=== PATIENT | female | born 1990 | race African-American/Black ===

== ENCOUNTER 2021-07-19 03:12 | Emergency (ER) | payer OTHER, SELFPAY ==
--- NOTE | ~2021-07-19 | US_ITS ---
EXAMINATION: US OB <=14 wk fetus w TV DATE: 07/19/2021 05:42 INDICATION: Bleeding and cramping during first trimester TECHNIQUE: Real-time pelvic ultrasound utilizing both a transvaginal and transabdominal probe was pe rformed. The interpreting radiologist was not present for the study. COMPARISON: None FINDINGS: The uterus measures 8.9 x 4.6 x 5.3 cm. There is an intrauterine gestational sac. A 3 mm yolk sac is present but no discernible pole. The mean sac diameter measures 11 mm, which correlates with a n estimated gestational age of 5 weeks and 1 days. The right ovary measures 3.3 x 2.2 x 2.2 cm. The left ovary measures 2.0 x 2.2 x 2.1 cm. There are a few small anechoic follicles in both ovaries. Vascular flow identified at both ovaries with venous an d arterial waveforms. There is no free fluid in the pelvis. IMPRESSION: 1. Single intrauterine early gestational sac with yolk sac but no pole yet apparent. 2. Gestational age by ultrasound of 5 weeks 1 day(s) +/- 3 day(s) with ultrasound estimated date of delivery (JACQUES) of 03/20/2022. Reviewed, dictated and finalized at location A. PARTS DELIVERY DRIVER IMPRESSION: 1. Single intrauterine early gestational sac with yolk sac but no pole ye t apparent. 2. Gestational age by ultrasound of 5 weeks 1 day(s) +/- 3 day(s) with ultraso und estimated date of delivery (JACQUES) of 03/20/2022.
[2021-07-19 03:25] VITALS: BP 104/91; PULSE 94; RESP 18; O2SAT 100
[2021-07-19 03:45] LABS: Basophils Percent Auto 0.3 % (0.2-1.2); Eosinophils Absolute Auto 0.2 K/mm3 (0-0.3); Eosinophils Percent Auto 2.1 % (0-4.4); Hematocrit 38.4 % (37.0-47.0); Hemoglobin 12.1 g/dL (12.0-15.0); Immature Granulocyte Absolute 0.01 K/mm3 (0.00-0.031); Immature Granulocyte Percent A 0.1 % (0-0.5); Lymphocytes Absolute Auto 2.32 K/mm3 (0.9-3.2); Mean Corpuscular HGB Conc 31.5 g/dl (32-36); Mean Corpuscular Hemoglobin 26.2 pg (26-34); Mean Corpuscular Volume 83.1 fl (80-100); Mean Platelet Volume 9.7 fl (7.4-10.4); Monocytes Absolute Auto 0.6 K/mm3 (0.1-0.6); Monocytes Percent Auto 8.3 % (2.6-8.5); Neutrophils Absolute Auto 3.9 K/mm3 (1.3-6.7); Neutrophils Percent Auto 56.2 % (45.5-73.1); Platelet Count Result 320 k/mm3 (150-375); Red Blood Count 4.62 M/mm3 (4.2-5.4); Red Cell Distribution Width 17.2 % (11.5-14.5)
[2021-07-19] MEDS: SODIUM CHLORIDE 0.9% IV 1,000 ML 999 ML IV CONT (03:47)
--- NOTE | 2021-07-19 03:56 | ED.GENADULT ---
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 Patient reports that she is approximately 6 states her last menstrual period was end of May. Patient reports that this is her second the first 1 ended in a miscarriage. Patient reports he did not have to have a D&C with the previous one and did not require RhoGAM at that time. Patient reports has had no evaluation during this and does not have a documented intrauterine . The patient also reports that she is unsure of her blood type. Patient reports that she is having cramping in her abdomen reports its more on the right side of her abdomen. The patient reports that is not improved by anything nor is it worsened by the patient reports the amount of bleeding that she had denied was similar to whenever she starts her menses. Related Data Allergies Allergy/AdvReac Type Severity Reaction Status Date / Time No Known Allergies Allergy Unverified 12/16/15 13:29 Review of Systems Review of Systems: A 10 system review of systems was completed on the patient and is negative except for what is stated in the HPI. Nursing and ancillary documentation was reviewed. Exam Narrative: GENERAL: Well-appearing, well-nourished, and in no acute distress. HEAD: Normocephalic, atraumatic. EYES: PERRLA and EOMI. ENT: Nares clear, no rhinorrhea or epistaxis. Mucous membranes moist. NECK: Supple. CHEST: Clear to auscultation. No respiratory distress. HEART: Regular rate and rhythm. No murmur heard. Normal peripheral pulses. ABDOMEN: Soft, mild tenderness to palpation in the right side of the abdomen, no guarding no rebound, nondistended, normal active bowel sounds. EXTREMITIES: Normal range of motion. No edema. SKIN: Warm, dry, no rash. NEURO: No focal deficits. Alert and oriented x3. PSYCH: Normal mood and affect. Course Vital Signs Vital signs: Vital Signs Pulse Rate 94 07/19/21 03:25 Respiratory Rate 18 07/19/21 03:25 Blood Pressure 104/91 H 07/19/21 03:25 Pulse Oximetry 100 07/19/21 03:25 Pulse Rate 84 07/19/21 06:26 Respiratory Rate 18 01/12/22 06:26 Blood Pressure 140/79 07/19/21 06:26 Pulse Oximetry 100 07/19/21 06:26 Medical Decision Making Vital Signs Vital Signs: Vital Signs Pulse Rate 94 07/19/21 03:25 Respiratory Rate 18 07/19/21 03:25 Blood Pressure 104/91 H 07/19/21 03:25 Pulse Oximetry 100 07/19/21 03:25 Pulse Rate 84 07/19/21 06:26 Respiratory Rate 18 07/19/21 06:26 Blood Pressure 140/79 07/19/21 06:26 Pulse Oximetry 100 07/19/21 06:26 Lab Data Result diagrams: 07/19/21 03:36 07/19/21 03:36 Labs: Lab Results 07/19/21 07/19/21 07/19/21 Range/Units 03:36 03:36 03:36 WBC 7.0 (4.5-10.0) K/mm3 RBC 4.62 (4.2-5.4) M/mm3 Hgb 12.1 (12.0-15.0) g/dL Hct 38.4 (37.0-47.0) % MCV 83.1 (80-100) fl MCH 26.2 (26-34) pg MCHC 31.5 L (32-36) g/dl RDW 17.2 H (11.5-14.5) % Plt Count 320 (150-375) k/mm3 MPV 9.7 (7.4-10.4) fl Immature Gran % (Auto) 0.1 (0-0.5) % Neut % (Auto) 56.2 (45.5-73.1) % Lymph % (Auto) 33.0 (18.3-44.2) % [place] % (Auto) 8.3 (2.6-8.5) % Eos % (Auto) 2.1 (0-4.4) % Baso % (Auto) 0.3 (0.2-1.2) % Lymph # (Auto) 2.32 (0.9-3.2) K/mm3 [place] # (Auto) 0.6 (0.1-0.6) K/mm3 Eos # (Auto) 0.2 (0-0.3) K/mm3 Baso # (Auto) 0.0 (0.0-0.1) K/mm3 Abs Immat Gran (auto) 0.01 (0.00-0.031) K/mm3 Absolute Neuts (auto) 3.9 (1.3-6.7) K/mm3 Absolute Nucleated RBC 0.0 (0.0-0.012) K/mm3 Nucleated RBC % 0.0 (0.0-0.2) % Sodium 137 (137-145) mmol/L Potassium 3.4 (3.4-5.0) mmol/L Chloride 105 (98-1
[2021-07-19 04:05] LABS: Alanine Aminotransferase 15 U/L (4-35); Alkaline Phosphatase 62 U/L (38-126); Anion Gap 10 mmol/L (8-16); Aspartate Amino Transferase 21 U/L (14-36); Bilirubin,Total 0.3 mg/dL (0.2-1.3); Blood Urea Nitrogen 11 mg/dL (7-17); Carbon Dioxide 22 mmol/L (22-30); Chloride 105 mmol/L (98-107); Estimated CRCL calculation 121 ml/min; Estimated Glomerular Filt Rate > 60; Glucose 114 mg/dL (65-110); Potassium 3.4 mmol/L (3.4-5.0); Sodium 137 mmol/L (137-145)
[2021-07-19 04:16] LABS: Add Urine Microscopic? YES; Appearance Urine Clear (Clear); Bacteria Urine Trace /hpf; Bilirubin Urine Negative (Negative); Blood Urine 2+ (Negative); Color Urine Yellow (Yellow); Glucose Urine UA Negative (Negative); Ketones Urine Negative (Negative); Leukocyte Esterase Ur 1+ LEU/UL (Negative); Mucus Urine Few /lpf; Nitrate Urine Negative (Negative); Protein Urine 1+ mg/dL (Negative); Specific Grav Ur 1.028 (1.001-1.035); Squamous Epithelial Cell Urine Many /hpf (Few)
[2021-07-19 04:23] VITALS: BP 133/83; PULSE 86; RESP 18; O2SAT 100
--- NOTE | 2021-07-19 04:44 | PC.NURSE ---
Discussed POC w/ pt - aware having U/S ordered. No requests at this time. Pt is alert and upright on stretcher w/ VSS.
--- NOTE | 2021-07-19 05:34 | PC.NURSE ---
Pt to U/S via w/c at this time.
[2021-07-19 06:26] VITALS: BP 140/79; PULSE 84; RESP 18; O2SAT 100
[2021-07-19 07:25] VITALS: BP 124/76; PULSE 89; RESP 18; O2SAT 99
== END 2021-07-19 07:30 | disposition home or self-care (01) ==
PROVIDERS: Emergency Provider Emergency Medicine
DX: O20.0 Threatened abortion (principal)
CPT/HCPCS: 36415; 76801; 76817; 80053; 81001; 81025; 84702; 85025; 85461; 87086; 87088; 96360; 99284; J7030

== ENCOUNTER 2021-07-21 08:54 | Outpatient (CLI) | payer OTHER, SELFPAY | END 2021-07-21 08:55 | disposition home or self-care (01) | PROVIDERS: Visit Provider Obstetrics & Gynecology | DX: O20.0 Threatened abortion (principal); Z3A.00 Weeks of gestation of pregnancy not specified | CPT/HCPCS: 36415; 84702 ==

== ENCOUNTER 2021-08-02 13:49 | Outpatient (CLI) | payer OTHER, SELFPAY ==
--- NOTE | ~2021-08-02 | US_ITS ---
US OB <=14 wk fetus w TV DATE: 08/02/2021 15:10 INDICATION: First trimester vaginal spotting. Gestational viability and dating. TECHNIQUE: Real-time imaging via transabdominal and transvaginal approaches COMPARISON: 07/19/2021 obstetrical ultrasound FINDINGS: The uterus measures 9.8 cm height, 5.4 cm AP and 6.6 cm transverse dimension. A normally shaped intrauterine gestational sac with normal surrounding hyperechogenicity consistent w ith normal decidual reaction is noted. Yolk sac and pole are detected. heart rate of 169 bpm. [place]-rump length measures 1.36 cm, consistent with estimated gestational age of 7 weeks 4 days +/- 5 days, with JACQUES at 03/17/2022. There is a right ovarian cysts measuring up to approximately 1 x 1.6 cm. The ovaries are normal in si ze, with normal vascular flow. No free pelvic fluid collection. IMPRESSION: Estimated gestational age of 7 weeks 4 days +/- 5 days; JACQUES: 03/17/2022 Reviewed, dictated and finalized at Location A. Reviewed, dictated and finalized at location A. NG MACHINE OPERATOR PRODUCTION IMPRESSION: Estimated gestational age of 7 weeks 4 days +/- 5 days; JACQUES: 022
[2021-08-05 06:40] LABS: Progesterone 16.9 ng/mL (***)
== END 2021-08-02 13:50 | disposition home or self-care (01) ==
PROVIDERS: Visit Provider Obstetrics & Gynecology
DX: Z34.91 Encounter for supervision of normal pregnancy, unspecified, first trimester (principal); Z3A.01 Less than 8 weeks gestation of pregnancy
CPT/HCPCS: 36415; 76801; 76817; 84144

== ENCOUNTER 2021-09-16 12:32 | Outpatient (CLI) | payer OTHER, SELFPAY ==
[2021-09-16 13:14] LABS: Basophils Percent Auto 0.3 % (0.2-1.2); Eosinophils Absolute Auto 0.1 K/mm3 (0-0.3); Eosinophils Percent Auto 1.5 % (0-4.4); Hematocrit 36.1 % (37.0-47.0); Hemoglobin 11.7 g/dL (12.0-15.0); Immature Granulocyte Absolute 0.02 K/mm3 (0.00-0.031); Immature Granulocyte Percent A 0.3 % (0-0.5); Mean Corpuscular HGB Conc 32.4 g/dl (32-36); Mean Corpuscular Hemoglobin 26.7 pg (26-34); Mean Corpuscular Volume 82.4 fl (80-100); Mean Platelet Volume 10.2 fl (7.4-10.4); Monocytes Absolute Auto 0.6 K/mm3 (0.1-0.6); Neutrophils Absolute Auto 4.1 K/mm3 (1.3-6.7); Neutrophils Percent Auto 60.9 % (45.5-73.1); Platelet Count Result 279 k/mm3 (150-375); Red Blood Count 4.38 M/mm3 (4.2-5.4); Red Cell Distribution Width 15.8 % (11.5-14.5); White Blood Count 6.8 K/mm3 (4.5-10.0)
[2021-09-16 13:29] LABS: Add Urine Microscopic? YES; Appearance Urine Cloudy (Clear); Bilirubin Urine Negative (Negative); Blood Urine Negative (Negative); Color Urine Yellow (Yellow); Glucose Urine UA Negative (Negative); Ketones Urine 1+ mg/dL (Negative); Leukocyte Esterase Ur Trace LEU/UL (NEGATIVE); Mucus Urine Rare /lpf; Nitrate Urine Negative (Negative); Protein Urine Negative (Negative); RBC Urine 0-2 /hpf (0-2); Specific Grav Ur 1.017 (1.001-1.035); Squamous Epithelial Cell Urine Few /hpf (Few); Urobilinogen Urine Negative mg/dL (<2.0)
[2021-09-16 13:57] LABS: Vitamin D 25 Hydroxy 15.2 ng/mL
[2021-09-16 14:04] LABS: HIV 1/2 Ab P24 Ag Result Negative (Negative)
[2021-09-16 14:11] LABS: Hepatitis B Surface Antigen Negative (Negative); Rubella IgG Antibody 8.1 IU/ML
[2021-09-16 14:28] LABS: Hepatitis C Virus Antibody Negative (Negative)
[2021-09-18 07:40] LABS: Rapid Plasma Reagin Non-Reactive (NonReactive)
[2021-09-21 01:09] LABS: Hematocrit 36.9 % (35.0-45.0); Hemoglobin 11.4 g/dL (11.7-15.5); MCH 25.9 pg (27.0-33.0); MCV 83.7 fL (80.0-100.0); RDW 15.2 % (11.0-15.0); Red Blood Cell Count 4.41 Mill/uL (3.80-5.10)
== END 2021-09-16 12:33 | disposition home or self-care (01) ==
PROVIDERS: Visit Provider Obstetrics & Gynecology
DX: Z34.90 Encounter for supervision of normal pregnancy, unspecified, unspecified trimester (principal); Z3A.00 Weeks of gestation of pregnancy not specified
CPT/HCPCS: 36415; 81001; 81243; 82306; 83021; 84443; 85025; 86592; 86703; 86762; 86787; 86803; 86850; 86900; 86901; 87086; 87088; 87340; G0432

== ENCOUNTER 2021-12-11 15:23 | Outpatient (CLI) | payer OTHER, SELFPAY ==
[2021-12-11 16:53] LABS: Basophils Percent Auto 0.1 % (0.2-1.2); Eosinophils Absolute Auto 0.1 K/mm3 (0-0.3); Eosinophils Percent Auto 1.4 % (0-4.4); Hematocrit 35.5 % (37.0-47.0); Hemoglobin 11.2 g/dL (12.0-15.0); Immature Granulocyte Absolute 0.04 K/mm3 (0.00-0.031); Immature Granulocyte Percent A 0.5 % (0-0.5); Lymphocytes Absolute Auto 1.82 K/mm3 (0.9-3.2); Lymphocytes Percent Auto 21.6 % (18.3-44.2); Mean Corpuscular HGB Conc 31.5 g/dl (32-36); Mean Corpuscular Hemoglobin 26.5 pg (26-34); Mean Corpuscular Volume 83.9 fl (80-100); Monocytes Absolute Auto 0.6 K/mm3 (0.1-0.6); Monocytes Percent Auto 7.1 % (2.6-8.5); Neutrophils Absolute Auto 5.9 K/mm3 (1.3-6.7); Neutrophils Percent Auto 69.3 % (45.5-73.1); Platelet Count Result 326 k/mm3 (150-375); Red Blood Count 4.23 M/mm3 (4.2-5.4); Red Cell Distribution Width 16.7 % (11.5-14.5); White Blood Count 8.4 K/mm3 (4.5-10.0)
[2021-12-11 17:13] LABS: Glucose 1 Hour PP 50gm Dose 103 mg/dL
[2021-12-11 17:49] LABS: Vitamin D 25 Hydroxy 24.9 ng/mL
== END 2021-12-11 15:24 | disposition home or self-care (01) ==
LOC: ANHLAB 15:25
PROVIDERS: Visit Provider Obstetrics & Gynecology
DX: Z34.90 Encounter for supervision of normal pregnancy, unspecified, unspecified trimester (principal); Z3A.00 Weeks of gestation of pregnancy not specified
CPT/HCPCS: 36415; 82306; 82947; 84436; 84443; 85025

== ENCOUNTER 2022-01-13 09:10 | Outpatient (CLI) | payer OTHER, SELFPAY ==
[2022-01-13] MEDS: TETANUS,DIPHTHERIA,AC PERTUSSIS ADULT (0.5 ML) BOOSTRIX IM (10:03)
== END 2022-01-13 09:11 | disposition home or self-care (01) ==
PROVIDERS: Visit Provider Obstetrics & Gynecology
DX: Z23 Encounter for immunization (principal)
CPT/HCPCS: 90471; 90715

== ENCOUNTER 2022-02-03 10:17 | Outpatient (CLI) | payer OTHER, SELFPAY ==
[2022-02-03 11:03] LABS: Basophils Percent Auto 0.3 % (0.2-1.2); Eosinophils Absolute Auto 0.1 K/mm3 (0-0.3); Eosinophils Percent Auto 1.3 % (0-4.4); Hemoglobin 11.3 g/dL (12.0-15.0); Immature Granulocyte Absolute 0.04 K/mm3 (0.00-0.031); Immature Granulocyte Percent A 0.5 % (0-0.5); Lymphocytes Percent Auto 18.6 % (18.3-44.2); Mean Corpuscular HGB Conc 32.3 g/dl (32-36); Mean Corpuscular Hemoglobin 26.5 pg (26-34); Mean Corpuscular Volume 82.2 fl (80-100); Mean Platelet Volume 10.1 fl (7.4-10.4); Monocytes Absolute Auto 0.5 K/mm3 (0.1-0.6); Monocytes Percent Auto 7.2 % (2.6-8.5); Neutrophils Absolute Auto 5.4 K/mm3 (1.3-6.7); Neutrophils Percent Auto 72.1 % (45.5-73.1); Platelet Count Result 320 k/mm3 (150-375); Red Blood Count 4.26 M/mm3 (4.2-5.4); Red Cell Distribution Width 15.8 % (11.5-14.5); White Blood Count 7.5 K/mm3 (4.5-10.0)
[2022-02-03 11:52] LABS: HIV 1/2 Ab P24 Ag Result Negative (Negative)
[2022-02-05 12:01] LABS: Rapid Plasma Reagin Non-Reactive (NonReactive)
== END 2022-02-03 10:18 | disposition home or self-care (01) ==
LOC: ANHOBOP 10:18
PROVIDERS: Visit Provider Obstetrics & Gynecology
DX: Z34.90 Encounter for supervision of normal pregnancy, unspecified, unspecified trimester (principal); Z3A.00 Weeks of gestation of pregnancy not specified
CPT/HCPCS: 36415; 59025; 76815; 76819; 85025; 86592; 86703; G0432

== ENCOUNTER 2022-02-23 13:10 | Outpatient (RCR) | payer OTHER, SELFPAY ==
[2022-01-13 10:35] VITALS: BP 116/67; PULSE 80
[2022-01-20 09:58] VITALS: BP 116/68; PULSE 98
[2022-01-27 09:50] VITALS: BP 119/72; PULSE 106
[2022-02-03 11:56] VITALS: BP 118/70; PULSE 82
[2022-02-10 10:20] VITALS: BP 119/67; PULSE 88
[2022-02-15 16:05] VITALS: BP 110/70; PULSE 87
--- NOTE | ~2022-02-23 | US_ITS ---
EXAMINATION: US OB limited w BPP DATE: 02/15/2022 16:06 CDT INDICATION: Abnormal BMI. Evaluate amniotic fluid index. TECHNIQUE: Real-time transabdominal obstetric ultrasound. FINDINGS: Comparison to 02/10/2022 There is a single living fetus in vertex presentation. The placenta is posterior without placenta pr evia. RENETTA is normal measuring 11.4 cm. cardiac activity and movement is noted with a heart rate of 139 beats per minute. Biophysical profile: breathin of 2 movement: 2 of 2 tone: 2 of 2 Amniotic flud pocket: 2 of 2 Total score: 8 of 8 IMPRESSION: 1. Single living intrauterine in vertex presentation. 2: Total biophysical profile score of 8/8. 3: Normal RENETTA measures 11.4 cm. Reviewed, dictated and finalized at location A.
--- NOTE | ~2022-02-23 | US_ITS ---
US OB limited 02/23/2022 14:24 Indication: Amniotic fluid index Procedure: High-resolution Limited obstetrical ultrasound Comparison: 02/15/2022 Findings: There is a single living intrauterine in vertex presentation. Placenta is posteri or without previa. heart rate is 137 BPM. Amniotic fluid index is normal measuring 10.9 cm (nor mal range for gestational age of 7.5-24.4 cm). Impression: 1: Normal RENETTA measures 10.9 cm. Reviewed, dictated and finalized at location B. Impression: 1: Normal RENETTA measures 10.9 cm.
--- NOTE | ~2022-02-23 | US_ITS ---
EXAMINATION: US OB limited w BPP DATE: 02/03/2022 11:42 INDICATION: Assess amniotic fluid index during third trimester of TECHNIQUE: Real-time pelvic ultrasound was performed. The interpreting radiologist was not present fo r the study. COMPARISON: None. FINDINGS: There is a single living fetus in vertex presentation. The placenta is posterior fundal. heart rate is 132 beats per minute (bpm). Normal amniotic fluid index of 8.8 cm (5th%-95%: 8.1-24.8 cm at 34 weeks estimated gestational age) Biophysical profile performed by the technologist: breathing (30 sec sustained breathing in 30 minutes): 2 out of 2 movement (3 gross body movements in 30 minutes): 2 out of 2 tone (one episode of usfkcla-etcksiucy-quahqmr limb movement): 2 out of 2 Amniotic fluid pocket (2 cm): 2 out of 2 Total score: 8 out of 8 IMPRESSION: 1. Single living fetus in vertex presentation with heart rate of 132 bpm. 2. Biophysical profile 8 out of 8. 3. Normal amniotic fluid index of 8.8 cm. Reviewed, dictated and finalized at location A.
--- NOTE | ~2022-02-23 | US_ITS ---
EXAMINATION: US OB limited DATE: 01/13/2022 10:30 INDICATION: Elevated BMI. Third trimester . Assess for amniotic fluid index. TECHNIQUE: Real-time ultrasound of the pelvis was performed. The interpreting radiologist was not pre sent for the study. COMPARISON: None. FINDINGS: There is a single living fetus in vertex presentation. The placenta is fundal. heart rate is 1 41 beats per minute (bpm). The amniotic fluid index is 9.5 cm, which is normal (5th%-95%: 8.8-23.8 cm at 31 weeks estimated gestational age). IMPRESSION: 1. Single living fetus in vertex presentation with heart rate of 141 bpm. 2. Normal amniotic fluid index of 9.5 cm. Reviewed, dictated and finalized at location A. IMPRESSION: 1. Single living fetus in vertex presentation with heart rate of 141 bpm . 2. Normal amniotic fluid index of 9.5 cm.
--- NOTE | ~2022-02-23 | US_ITS ---
US OB limited DATE: 02/10/2022 10:12 INDICATION: Amniotic fluid index measurement TECHNIQUE: Real-time imaging and Doppler analysis COMPARISON: 02/03/2022 obstetrical ultrasound with biophysical profile FINDINGS: Live ruano intrauterine gestation, fetus in longitudinal lie, vertex presentation, with heart rate of 132 bpm. Fetus was noted to be very active. Fundal placenta. Amniotic fluid index measures 11.0 cm, within normal range. (5th percentile RENETTA: 7.9 cm; 95th percent ile: 24.9 cm). IMPRESSION: Normal amniotic fluid index of 11.0 cm Reviewed, dictated and finalized at Location A. Reviewed, dictated and finalized at location A.
--- NOTE | ~2022-02-23 | US_ITS ---
US OB follow up DATE: 01/20/2022 10:10 INDICATION: Major RENETTA. Elevated BMI. TECHNIQUE: Real-time imaging and Doppler analysis COMPARISON: 01/13/2022 obstetrical ultrasound Limited examination 08/02/2021 and 07/19/2021 obstetrical ultrasound examinations FINDINGS: Live ruano intrauterine gestation, fetus in longitudinal lie, vertex presentation. Fundal placenta. Amniotic fluid index measures 14.0 cm. (5th percentile RENETTA: 8.6 cm. 95th RENETTA: 24.2 cm). BPD 8.28 cm; 33 weeks 2 days Head circumference: 31.01 cm; 34 weeks 5 days Abdominal circumference: 29.01 cm; 33 weeks 0 days Femur length 6.51 cm; 33 weeks 4 days Composite age by Hadlock formula is 33 weeks 5 days plus or minus 2 weeks 2 days. JACQUES would be 2021 based on current examination. Third trimester estimates of age are not optimally accurate and s hould not alter more reliable JACQUES from first or second trimester ultrasound examination or reliable L MP. Estimated weight is 2181 +/- 327 g. Estimated weight-GP: 66.1% Femur length/BPD 78.67, within normal range of 71.0-87.0 Head circumference/abdominal circumference 1.07, within normal range of 0.95 -1.11 Femur length/abdominal circumference 22.46, within normal range of 20.00-24.00 Femur length/head circumference 21.01, within normal range of 19.54-21.71. IMPRESSION: RENETTA measures 14.0 cm, normal Reviewed, dictated and finalized at Location A. Reviewed, dictated and finalized at location A.
--- NOTE | ~2022-02-23 | US_ITS ---
US OB limited 01/27/2022 09:54 Indication: Evaluate amniotic fluid volume Procedure: Realtime limited obstetrical ultrasound Comparison: No prior studies for comparison. Findings: There is a single living intrauterine in vertex presentation. heart rate is 142 BPM. Placenta is posterior/fundal. Amniotic fluid index is 9.6 cm (normal range for gestational age is 8.3-24.5 cm). Impression: 1: Normal RENETTA measures 9.6 cm. Reviewed, dictated and finalized at location A. Impression: 1: Normal RENETTA measures 9.6 cm.
[2022-02-23 13:50] VITALS: BP 115/65; PULSE 87
== END 2022-04-04 10:08 | disposition home or self-care (01) ==
LOC: ANHOBOP 13:10
PROVIDERS: Visit Provider Obstetrics & Gynecology
DX: O26.893 Other specified pregnancy related conditions, third trimester (principal); O26.03 Excessive weight gain in pregnancy, third trimester; Z3A.31 31 weeks gestation of pregnancy; Z3A.32 32 weeks gestation of pregnancy; Z3A.33 33 weeks gestation of pregnancy; Z3A.34 34 weeks gestation of pregnancy; Z3A.35 35 weeks gestation of pregnancy
CPT/HCPCS: 59025; 76815; 76816; 76819

== ENCOUNTER 2022-02-28 10:51 | Observation (INO) | payer OTHER, SELFPAY ==
[2022-02-28 11:54] VITALS: TEMP 36.6
--- NOTE | 2022-02-28 12:17 | OBADM ---
This patient, Jenny Mejia, admitted to the OB room Labor/Delivery/Recovery 108 for observation. Patient/family oriented to hospital policies and general routines including ID bracelet, bed and alarms, visiting hours, pain management, procedures, bathroom and other care routines, personal items, smoking policy, room service/diet, and visiting hours. Patient/Family are encouraged to report perceived risks to care and to ask questions if they do not understand what they are told or what they should do.
--- NOTE | 2022-03-27 10:30 | PM.OBTRLD ---
OB - Triage/Final Diagnosis Visit Information Comments/Additional reasons for admission: I have assessed the risk for this patient, Jenny Mejia, and determined that she would benefit from observation care. Final Diagnosis (1) False labor: Code(s): O47.9 - False labor, unspecified Status: Acute
== END 2022-02-28 12:35 | disposition home or self-care (01) ==
PROVIDERS: Admitting Provider Obstetrics & Gynecology; Visit Provider Obstetrics & Gynecology
DX: O47.9 False labor, unspecified (principal); Z3A.00 Weeks of gestation of pregnancy not specified
CPT/HCPCS: G0378; G0379

== ENCOUNTER 2022-03-01 04:50 | Inpatient (IN) | payer OTHER, SELFPAY ==
[2022-03-01] VITALS (295 sets, daily range): BP systolic 66–156; BP diastolic 24–128; PULSE 25–148; TEMP 36.2–38.8; O2SAT 78–100; BMI 44.4
[2022-03-01 05:55] LABS: Basophils Percent Auto 0.3 % (0.2-1.2); Eosinophils Absolute Auto 0.1 K/mm3 (0-0.3); Eosinophils Percent Auto 1.2 % (0-4.4); Hematocrit 35.5 % (37.0-47.0); Hemoglobin 11.5 g/dL (12.0-15.0); Immature Granulocyte Absolute 0.03 K/mm3 (0.00-0.031); Immature Granulocyte Percent A 0.4 % (0-0.5); Lymphocytes Absolute Auto 1.69 K/mm3 (0.9-3.2); Lymphocytes Percent Auto 23.1 % (18.3-44.2); Mean Corpuscular HGB Conc 32.4 g/dl (32-36); Mean Corpuscular Hemoglobin 26.3 pg (26-34); Mean Corpuscular Volume 81.2 fl (80-100); Mean Platelet Volume 10.5 fl (7.4-10.4); Monocytes Absolute Auto 0.8 K/mm3 (0.1-0.6); Monocytes Percent Auto 10.7 % (2.6-8.5); Neutrophils Absolute Auto 4.7 K/mm3 (1.3-6.7); Neutrophils Percent Auto 64.3 % (45.5-73.1); Platelet Count Result 286 k/mm3 (150-375); Red Blood Count 4.37 M/mm3 (4.2-5.4); Red Cell Distribution Width 15.3 % (11.5-14.5); White Blood Count 7.3 K/mm3 (4.5-10.0)
[2022-03-01] MEDS: LACTATED RINGERS 1,000 ML 125 ML IV CONT ×5 (05:57→23:31)
[2022-03-01] MEDS: AMPICILLIN 2 GM/NS 100 ML 2 GM/100 ML BAG IVPB (05:58)
--- NOTE | 2022-03-01 07:10 | WPDANESEPPF ---
Anes - Initial Pre Proc Eval Procedure: labor epidural Date/Time: 03/01/22 07:10 Surgeon: Emerson Blake MD Pre Op Diagnosis: labor pain Pre Op Diagnosis: Leaking Patient Data Age: 32 Gender: F Height: 1.68 m Weight: 125 kg Last Vital Signs Pulse 92 03/01/22 07:08 BP 125/74 03/01/22 07:08 Pulse Ox 99 03/01/22 07:08 O2 Del Method Room Air 03/01/22 06:03 Allergies Allergy/AdvReac Type Severity Reaction Status Date / Time No Known Allergies Allergy Verified 02/23/22 14:45 Home Medications Medication Instructions Recorded Confirmed Type vitamins no.119-iron 1 tablet PO DAILY 09/04/21 03/01/22 History fumarate 29 mg-folic acid 1 mg tablet aspirin 81 mg chewable tablet 81 mg PO DAILY 01/13/22 03/01/22 History cholecalciferol (vitamin D3) 50 2,000 unit PO DAILY 01/27/22 03/01/22 History mcg (2,000 unit) tablet (Vitamin D3) valacyclovir 500 mg tablet 500 mg PO DAILY #30 tabs 02/15/22 03/01/22 Rx (Valtrex) Laboratory Tests 03/01/22 03/01/22 05:47 05:47 WBC 7.3 K/mm3 K/mm3 (4.5-10.0) RBC 4.37 M/mm3 M/mm3 (4.2-5.4) Hgb 11.5 g/dL L g/dL (12.0-15.0) Hct 35.5 % L % (37.0-47.0) MCV 81.2 fl fl (80-100) MCH 26.3 pg pg (26-34) MCHC 32.4 g/dl g/dl (32-36) RDW 15.3 % H % (11.5-14.5) Plt Count 286 k/mm3 k/mm3 (150-375) MPV 10.5 fl H fl (7.4-10.4) Immature Gran % (Auto) 0.4 % % (0-0.5) Neut % (Auto) 64.3 % % (45.5-73.1) Lymph % (Auto) 23.1 % % (18.3-44.2) [place] % (Auto) 10.7 % H % (2.6-8.5) Eos % (Auto) 1.2 % % (0-4.4) Baso % (Auto) 0.3 % % (0.2-1.2) Lymph # (Auto) 1.69 K/mm3 K/mm3 (0.9-3.2) [place] # (Auto) 0.8 K/mm3 H K/mm3 (0.1-0.6) Eos # (Auto) 0.1 K/mm3 K/mm3 (0-0.3) Baso # (Auto) 0.0 K/mm3 K/mm3 (0.0-0.1) Abs Immat Gran (auto) 0.03 K/mm3 K/mm3 (0.00-0.031) Absolute Neuts (auto) 4.7 K/mm3 K/mm3 (1.3-6.7) Absolute Nucleated RBC 0.0 K/mm3 K/mm3 (0.0-0.012) Nucleated RBC % 0.0 % % (0.0-0.2) RPR Pending Patient hx anesthesia problems: none Family hx anesthesia problems: none Results Review: All pre-operative results and documents have been reviewed as part of the pre-operative evaluation. [facility] Past Medical History Medical History History of herpes genitalis History of miscarriage Family History Family History Sibling Asthma Father Heart disease Mother Hypertension Social History Social History Smoking status: Never smoker Second hand tobacco smoke exposure: No Alcohol intake: never Substance use: never Spiritual care concerns: Yes (Would like mounter brass wind instruments to visit) Anes - Eval Final PreProcedure Day of Procedure 03/01/22 07:10 Patient weight: normal Heart: regular rate and rhythm Lungs: clear to auscultation and normal air movement Airway: Mallampati scale class II Neurological: alert and oriented Last oral intake: 4 hours ASA classification: II Emergent: no Anesthetic plan: proceed Anesthesia type and monitoring: regional and standard monitoring Results Review: All pre-operative results and documents have been reviewed as part of the pre-operative evaluation. Informed Consent: The patient's anesthetic plan and its attendant risks and benefits were discussed with the patient/family/POA. Questions were solicited and answers provided to the satisfaction of the patient/family/POA.
[2022-03-01 07:20] LABS: Rapid Plasma Reagin Non-Reactive (NonReactive)
--- NOTE | 2022-03-01 09:07 | PM.IMHP ---
H&P: HPI History of Present Illness Date/Time: 03/01/22 09:07 Chief Complaint: Contractions Narrative: She is a at 38 2/7 weeks by an EDC of 03/13/2022 based on LMP of 06/06/22 and consistent with 7 week ultrasound. She presented to [facility] with complaints of leaking of fluid, clear and subsequent strong contractions starting at 0430. No HSV symptoms. She was confirmed spontaneous rupture of membranes and cervix was dilated 2cm. 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 She has an history of single episode of HSV. No symptoms during . She has been on Valtrex suppression since 36 weeks. She had amniotic fluid checked due to borderline low RENETTA. The fluid remained normal and normal surveillance. OB labs reviewed. Review of Systems Review of Systems: All systems reviewed & are unremarkable except as noted in HPI and below Constitutional: Constitutional: Reports no additional constitutional complaints and Denies headache(s) Eyes: Eyes: Denies spots in vision ENT: Reports system reviewed and no additional complaints, except as documented and Denies headache(s) Cardiovascular: Cardiovascular: Denies chest pain and Denies dyspnea Respiratory: Respiratory: Denies dyspnea Gastrointestinal: Gastrointestinal: Reports no additional gastrointestinal complaints Genitourinary: Genitourinary: Reports amenorrhea Musculoskeletal: Musculoskeletal: Reports no additional musculoskeletal complaints Integumentary/Breasts: Skin/Breast: Denies breast mass and Denies rash Neurologic: Denies headache(s) Psychiatric: Psychiatric: Reports no additional psychiatric complaints [facility] Past Medical History Medical History History of herpes genitalis History of miscarriage Family History Family History Sibling Asthma Father Heart disease Mother Hypertension Social History Social History Smoking status: Never smoker Second hand tobacco smoke exposure: No Alcohol intake: never Substance use: never Spiritual care concerns: Yes (Would like tip stretcher to visit) Meds Home Medications and Allergies Home Medications Medication Instructions Recorded Confirmed Type vitamins no.119-iron 1 tablet PO DAILY 09/04/21 03/01/22 History fumarate 29 mg-folic acid 1 mg tablet aspirin 81 mg chewable tablet 81 mg PO DAILY 01/13/22 03/01/22 History cholecalciferol (vitamin D3) 50 2,000 unit PO DAILY 01/27/22 03/01/22 History mcg (2,000 unit) tablet (Vitamin D3) valacyclovir 500 mg tablet 500 mg PO DAILY #30 tabs 02/15/22 03/01/22 Rx (Valtrex) Allergies Allergy/AdvReac Type Severity Reaction Status Date / Time No Known Allergies Allergy Verified 02/23/22 14:45 Vital Signs Vital Signs - 24 hr 03/01/22 05:31 03/01/22 05:46 03/01/22 06:01 Temperature Pulse Rate 79 78 72 Blood Pressure 117/71 114/60 125/68 Pulse Oximetry Oxygen Delivery 03/01/22 06:16 03/01/22 06:31 03/01/22 06:41 Temperature Pulse Rate 74 68 Blood Pressure 121/72 123/64 Pulse Oximetry 100 Oxygen Delivery 03/01/22 06:42 03/01/22 06:43 03/01/22 06:46 Temperature Pulse Rate 73 92 91 Blood Pressure 136/76 122/88 131/77 Pulse Oximetry 100 Oxygen Delivery 03/01/22 06:49 03/01/22 06:52 03/01/22 06:54 Temperature Pulse Rate 81 87 Blood Pressure 136/77 128/81 Pulse Oximetry 99 Oxygen Delivery 03/01/22 06:55 03/01/22 06:58 03/01/22 06:58 Temperature Pulse Rate 83 Blood Pressure 123/79 Pulse Oximetry 86 L 91 Oxygen Delivery 03/01/22 06:59 03/01/22 07:00 03/01/22 07:03 Temperature Pulse Rate 78 Blood Pressure 137/67 Pulse Oximetry 98 99 Oxygen Delivery 03/01/22 07:04 03/01/22 07:06 03/01/22 07:08 Temperature Pulse Rate 79 86 92 Blood Pressure 132/69 96/45 L 1
--- NOTE | 2022-03-01 09:08 | PM.OBPNVD ---
OB - PN: Subj Subjective Date/time seen: 03/01/22 09:08 Interval history: fht 115, cat 1, ctx irreg, IUPC placed due to toco not adequately tracking ctx, cervix -1. OB - PN: Obj Data Labs CBC & Chem 7: 03/01/22 05:47 Labs: Laboratory Results - last 24 hr 03/01/22 03/01/22 03/01/22 05:47 05:47 05:47 WBC 7.3 RBC 4.37 Hgb 11.5 L Hct 35.5 L MCV 81.2 MCH 26.3 MCHC 32.4 RDW 15.3 H Plt Count 286 MPV 10.5 H Immature Gran % (Auto) 0.4 Neut % (Auto) 64.3 Lymph % (Auto) 23.1 [place] % (Auto) 10.7 H Eos % (Auto) 1.2 Baso % (Auto) 0.3 Lymph # (Auto) 1.69 [place] # (Auto) 0.8 H Eos # (Auto) 0.1 Baso # (Auto) 0.0 Abs Immat Gran (auto) 0.03 Absolute Neuts (auto) 4.7 Absolute Nucleated RBC 0.0 Nucleated RBC % 0.0 RPR Non-reactive Blood Type AB Positive Antibody Screen Negative OB - PN A/P Time Spent With Patient Time: Total time spent is greater than 50% in coordination of care (as documented) at patient's floor/unit and/or counseling patient:
[2022-03-01] MEDS: AMPICILLIN 1 GM/NS 50 ML 1 GM/50 ML BAG IVPB ×4 (10:02→23:31)
[2022-03-01] MEDS: OXYTOCIN 30 UNITS/NS 500 ML 30 UNITS/500 ML BAG IV CONT (12:55)
[2022-03-01] MEDS: GENTAMICIN 80MG/SOD CHL 50 ML 80 MG/50 ML BAG 100 MG IVPB (22:14)
[2022-03-01] MEDS: ONDANSETRON INJ 4 MG/2 ML VIAL IV PUSH (22:41)
[2022-03-01] MEDS: diphenhydrAMINE HCl INJ 50 MG/ML VIAL 25 MG IV PUSH (22:41)
[2022-03-02] VITALS (164 sets, daily range): BP systolic 95–160; BP diastolic 30–102; PULSE 33–145; RESP 16–20; TEMP 36.2–37.7; O2SAT 68–100
[2022-03-02] MEDS: fentaNYL CITRATE INJ (*CRX) 100 MCG/2 ML VIAL IV PUSH (01:40)
--- NOTE | 2022-03-02 02:46 | WPDANESEPN ---
Anes - Epidural Procedure Note Date/Time: 03/02/22 02:46 Consent: I have discussed with the patient/family/POA, the placement of an epidural catheter and the use of epidural narcotic/local anesthetic for labor analgesia and/or postoperative pain management, including associated potential risks, benefits, complications and side effects. I have discussed alternative methods of labor analgesia and/or postoperative pain management. The patient/family/POA, understand(s) and wish(es) to proceed with epidural narcotic/local anesthetic for labor analgesia and/or postoperative pain management. Time-Out: A pre-procedural Time-Out was completed immediately before starting the procedure and confirmed: Patient Identification, Site, Procedure, Patient Position and the Availability of Requisite Equipment. Clinical Indications: LABOR PAIN Epidural Insertion Note Patient position: sitting Skin prep: chlorhexidine and sterile drape Needle: 18g Tuohy-Schliff Catheter: 20g Unstyleted Technique: Loss of resistance. Level of insertion: L2/3 Catheter skin isa (cm): 9 Length in epidural space (cm): 15 Skin anesthesia: lidocaine 1% Test dose: 1.5% Lidocaine with [id number] Epi, negative for subarachnoid Inj and negative for intravascular Inj Time of test dose: 02:35 Observations: tolerated well Complications: none
[2022-03-02] MEDS: AMPICILLIN 1 GM/NS 50 ML 1 GM/50 ML BAG IVPB (05:18)
[2022-03-02] MEDS: OXYTOCIN 30 UNITS/NS 500 ML 30 UNITS/500 ML BAG 125 UNITS IV CONT (07:23)
--- NOTE | 2022-03-02 07:48 | PM.OBPRVD ---
OB - Delivery Note Procedure Delivery date: 03/02/22 Procedure: spontaneous vaginal delivery Events: Positive Group B Strep (GBS) Intrapartal Events: Chorioamnionitis Delivery augmentation: Pitocin Delivery monitor: External FHT and Internal Uterine Route of delivery: Episiotomy description: None Laceration Description: Vaginal (right lateral wall) Delivery repair: vicryl (3.0 vicryl) Specimen: Yes (placenta and cord) Quantitative Blood Loss (ml): 350 Anesthesia type: Local Disposition: Floor Narrative: Patient admitted in labor and after confirmed SROM, clear. Ampicillin was initiated for GBS carrier. She was haylie regularly on admission. She requested an epidural which was placed. She continued to slowly progress into active labor. The morning of admission an IUPC was placed to help monitor contractions. During labor there was a period that she did not have adequate pain control, the epidural dose was bolused. Eventually the epidural was replaced. This did improve her analgesia. She did have a fever and was given Tulenol. No tachycardia at that time. Fever did increase and the baseline heart tone increased and she was started on Gentamicin for the diagnosis of chorioamnionitis. The temperature did decrease and baseline heart rate decreased to prior baseline. She continued to slowly progress. She dilated to complete and pushed approximately for 30 minutes and delivered a male in the OP position over an intact perineum. There was a tight nuchal cord which was surgically reduced. Nose and mouth suctioned at perineum. was placed on maternal abdomen vigorously crying. Cord blood and cord gases obtained. Placenta delivered spontaneously and intact and appeared to have a marginal cord insertion. She did have a right vaginal wall laceration repaired with 3.0 suture. Hemostasis noted. Sponge count correct. Needle count correct. [place] Baby Date of : 03/02/22 Time of : 06:51 Weeks of gestation at delivery: 38 gender: Male Weight (pounds): 6 Weight (ounces): 5 presentation: vertex position: Left Occiput Posterior Placenta delivery description: Spontaneous Cord Vessel Description: 3 Vessels, Nuchal Cord, Tight and Reduced (surgically) score one minute: 8 score five minutes: 9
[2022-03-02] MEDS: GENTAMICIN 80MG/SOD CHL 50 ML 80 MG/50 ML BAG 100 MG IVPB ×2 (08:01→17:35)
[2022-03-02] MEDS: CLINDAMYCIN 900 MG/D5W 50 ML 900 MG/50 ML PIGGYBACK 50 MG IVPB ×2 (08:42→16:56)
[2022-03-02] MEDS: ACETAMINOPHEN 325 MG TABLET 650 MG PO ×3 (09:44→23:05)
[2022-03-02] MEDS: valACYclovir HCL 500 MG TABLET PO (10:27)
--- NOTE | 2022-03-02 10:32 | OBPPTRN ---
Patient transferred to post room # 291 via wheelchair. PT introductions made and plan of care discussed per post , pain management, daily care activities and breast and bottle feeding. PT received such instructions per one to one discussion, mom baby care guide and demonstrations this shift. PT and fob both recipients of such instructions.No barriers to learning identified at this time. Oriented to unit, room, information board, rooming in, admission packet and security measures. Patient verbalizes understanding.
[2022-03-02] MEDS: OXYTOCIN 30 UNITS/NS 500 ML 30 UNITS/500 ML BAG IV CONT (12:55)
[2022-03-02] MEDS: IBUPROFEN 600 MG TABLET PO ×2 (16:54→23:05)
[2022-03-02] MEDS: DOCUSATE SODIUM 100 MG CAPSULE PO (16:54)
[2022-03-02] MEDS: LANOLIN (LANSINOH) 7.5 GM CREAM 1 APPLIC TOPICAL (16:55)
[2022-03-03] MEDS: IBUPROFEN 600 MG TABLET PO ×2 (04:47→09:56)
[2022-03-03] MEDS: ACETAMINOPHEN 325 MG TABLET 650 MG PO (04:48)
[2022-03-03 05:08] VITALS: BP 129/79; PULSE 76; RESP 18; TEMP 36.8; O2SAT 100
[2022-03-03 05:56] LABS: Hematocrit 30.5 % (37.0-47.0); Hemoglobin 9.5 g/dL (12.0-15.0); Mean Corpuscular HGB Conc 31.1 g/dl (32-36); Mean Corpuscular Hemoglobin 25.9 pg (26-34); Mean Corpuscular Volume 83.1 fl (80-100); Mean Platelet Volume 10.6 fl (7.4-10.4); Platelet Count Result 231 k/mm3 (150-375); Red Blood Count 3.67 M/mm3 (4.2-5.4); Red Cell Distribution Width 15.9 % (11.5-14.5); White Blood Count 14.3 K/mm3 (4.5-10.0)
--- NOTE | 2022-03-03 05:56 | PM.OBPNVD ---
OB - PN: Subj Subjective Date/time seen: 03/03/22 05:56 Patient doing well. Minimal cramping well controlled with medication. Denies any headache, chest pain, SOB, N/V, or fever. Reports mild discomfort from burst vessels in eye. Denies any visual changes. Minimal lochia. Ambulating without difficulty. Voiding well. Interval history: fht 115, cat 1, ctx irreg, IUPC placed due to toco not adequately tracking ctx, cervix -. OB - PN: Obj Data Labs CBC & Chem 7: 03/01/22 05:47 OB - PN A/P Assessment and Plan (1) Normal spontaneous vaginal delivery: Code(s): O80 - Encounter for full-term uncomplicated delivery Status: Acute Assessment and Plan: PPD#1 doing well continue routine care pt would like dc home today, has been afebrile since 03/01, will check CBC, if WNL, will consider dc home this afternoon dc also pending infant clearance emergency precautions reviewed f/u in office in 4-6 weeks or sooner if necessary advised to schedule appt with ophthalmology/optometry to evaluate eye (2) Chorioamnionitis: Code(s): O41.1290 - Chorioamnionitis, unspecified trimester, not applicable or unspecified Status: Acute Assessment and Plan: s/p antibiotics x 2 doses remains afebrile will check CBC this AM Time Spent With Patient Time: Total time spent is greater than 50% in coordination of care (as documented) at patient's floor/unit and/or counseling patient: Exam Const: General: cooperative, healthy appearing, comfortable and no acute distress GI: Inspection: non-distended GI Palp: Yes Soft to palpation and No Tenderness to palpation present (GI) Other: fundus firm below umbilicus
--- NOTE | 2022-03-03 06:02 | PM.OBDSVD ---
DS: Admitting Diagnosis Discharge Date 03/03/22 Admitting Diagnosis IUP at 38w2d PROM Labor OB - DS: Summary OB Procedures : None OB Procedures Intrapartum: Spontaneous Vag Delivery and GBS prophylaxis OB Procedures: : Antibiotics Time Spent with Patient Time attestation: Total time spent providing and/or coordinating discharge services: DS: Data Data Completed and Pending Pending studies at discharge: Pending at discharge 03/02/22 06:57 Surgical [PTH] Routine Labs on day of discharge: Labs from last 24 hours 03/03/22 05:49 WBC 14.3 H RBC 3.67 L Hgb 9.5 L Hct 30.5 L MCV 83.1 MCH 25.9 L MCHC 31.1 L RDW 15.9 H Plt Count 231 MPV 10.6 H Discharge Plan Discharge Attending physician on discharge: Lacey Soto Discharging Clinician: Lacey Soto Anticipated Discharge Date/Time: 03/03/22 12:00 Patient Disposition: Home, Self-Care Activity: as tolerated and pelvic rest Diet: regular Discharge Instructions: Call office ([phone]) to schedule a visit in 4-6 weeks. You may take Ibuprofen 600mg every 6 hours as needed for pain. You may also alternate with Tylenol 1000mg (two extra strength tablets) every 6 hours as well. Pain medication may make you constipated. It may be helpful to take an [id number] stool softener, such as Colace and/or Senokot, along with the pain medication to help lessen constipation. Call office or go to ED for pain not controlled with medication, headache, chest pain, shortness of breath, fever, chills, persistent nausea or vomiting, severe abdominal pain, heavy vaginal bleeding >2 pads/hour, foul vaginal discharge or odor, or problems with your breasts. Patient Instructions: Antibiotic Form Stand Alone Forms: General Discharge Information Follow-up/Referrals: Emerson Blake MD [Physician] - Lacey Soto MD [Physician] - Discharge Medications: Continued PNV 119-iron fum-folic acid 29 mg iron- 1 mg tablet 1 tablet PO DAILY cholecalciferol (vitamin D3) [Vitamin D3] 50 mcg (2,000 unit) Tablet 2,000 unit PO DAILY Discontinued valacyclovir [Valtrex] 500 mg tablet 500 mg PO DAILY Qty: 30 1RF aspirin 81 mg Tablet,Chewable 81 mg PO DAILY Date of admission: 03/01/22 04:50 Primary Care Provider: PHYSICIAN,BOTTOM POUNDER [employer] Admitting Provider: Emerson Blake Attending physician on admission: Emerson Blake Condition: Stable
[2022-03-03] MEDS: DOCUSATE SODIUM 100 MG CAPSULE PO (09:55)
[2022-03-03] MEDS: MULTIVIT/MIN/PREN/FOL AC/IRON TABLET 1 TAB PO (09:55)
[2022-03-03] MEDS: valACYclovir HCL 500 MG TABLET PO (09:55)
[2022-03-03] MEDS: POLYSACCHARIDE IRON COMPLEX 150 MG CAPSULE PO (09:56)
[2022-03-03 10:00] VITALS: BP 101/56; PULSE 76; PULSE 78; RESP 16; RESP 18; TEMP 36.4; O2SAT 100; O2SAT 99
--- NOTE | 2022-03-03 11:28 | PC.NURSE ---
Patient viewed the discharge video Mother & Baby Care, The First Two Weeks . Patient was given the opportunity and encouraged to ask questions. Patient verbalized understanding of information shared and has been given the mother/baby guide for home reference.
[2022-03-05 14:31] VITALS: BP 123/60; PULSE 86; RESP 20; TEMP 36.9; O2SAT 100
== END 2022-03-03 13:08 | disposition home or self-care (01) | DRG 805 ==
LOC: ANHLDR 03-02 10:06 → ANHOB2 03-02 12:29 → ANHLDR 03-06 13:23
PROVIDERS: Admitting Provider Obstetrics & Gynecology; Visit Provider Student in an Organized Health Care Education/Training Program
DX: O75.2 Pyrexia during labor, not elsewhere classified (principal); O41.1230 Chorioamnionitis, third trimester, not applicable or unspecified; Z37.0 Single live birth; O98.52 Other viral diseases complicating childbirth; O71.4 Obstetric high vaginal laceration alone; O43.123 Velamentous insertion of umbilical cord, third trimester; O99.824 Streptococcus B carrier state complicating childbirth; B00.9 Herpesviral infection, unspecified; O69.1XX0 Labor and delivery complicated by cord around neck, with compression, not applicable or unspecified; Z3A.38 38 weeks gestation of pregnancy
CPT/HCPCS: 36415; 84112; 85025; 85027; 86592; 86850; 86900; 86901; 88307; A9270; G0378; G0379; J0131; J0290; J1200; J1580; J2405; J2590; J2795; J3010; J7120

== ENCOUNTER 2022-08-27 16:04 | Outpatient (CLI) | payer OTHER, SELFPAY ==
--- NOTE | ~2022-08-27 | US_ITS ---
EXAMINATION: US OB <=14 wk fetus w TV DATE: 08/27/2022 16:49 INDICATION: Positive test. TECHNIQUE: Real-time transabdominal and transvaginal pelvic ultrasound was performed. COMPARISON: None. FINDINGS: TRANSABDOMINAL ULTRASOUND: The uterus measures 12.8 x 5.3 x 7.0 cm. TRANSVAGINAL ULTRASOUND: There is an intrauterine gestational sac. A yolk sac is identified. The fet al crown rump length measures 1.9 cm, which correlates with an estimated gestational age of 8 weeks a nd 3 day(s) (+/-) 5 day(s). heart motion is identified measuring 162 beats per minute (bpm) by M-mode Doppler. The right ovary measures 3.8 x 2.2 x 2.6 cm. The left ovary measures 3.2 x 3.2 x 2.1 cm. There is no free fluid in the pelvis. IMPRESSION: 1. Single living intrauterine gestation with estimated date of delivery of 04/05/2023. Reviewed, dictated and finalized at location A. R CHECKER IMPRESSION: 1. Single living intrauterine gestation with estimated date of delivery of 03/09.
== END 2022-08-27 16:05 | disposition home or self-care (01) ==
PROVIDERS: PCP Obstetrics & Gynecology; Visit Provider Obstetrics & Gynecology
DX: Z32.01 Encounter for pregnancy test, result positive (principal)
CPT/HCPCS: 76801; 76817

== ENCOUNTER 2022-09-26 14:45 | Outpatient (CLI) | payer OTHER, SELFPAY ==
[2022-09-26 15:39] LABS: Basophils Percent Auto 0.3 % (0.2-1.2); Eosinophils Absolute Auto 0.1 K/mm3 (0-0.3); Eosinophils Percent Auto 1.3 % (0-4.4); Hematocrit 36.4 % (37.0-47.0); Hemoglobin 11.6 g/dL (12.0-15.0); Immature Granulocyte Absolute 0.02 K/mm3 (0.00-0.031); Immature Granulocyte Percent A 0.3 % (0-0.5); Lymphocytes Absolute Auto 2.02 K/mm3 (0.9-3.2); Lymphocytes Percent Auto 29.4 % (18.3-44.2); Mean Corpuscular HGB Conc 31.9 g/dl (32-36); Mean Corpuscular Hemoglobin 25.3 pg (26-34); Mean Corpuscular Volume 79.5 fl (80-100); Mean Platelet Volume 9.9 fl (7.4-10.4); Monocytes Absolute Auto 0.5 K/mm3 (0.1-0.6); Monocytes Percent Auto 7.9 % (2.6-8.5); Neutrophils Absolute Auto 4.2 K/mm3 (1.3-6.7); Neutrophils Percent Auto 60.8 % (45.5-73.1); Platelet Count Result 308 k/mm3 (150-375); Red Blood Count 4.58 M/mm3 (4.2-5.4); Red Cell Distribution Width 17.5 % (11.5-14.5); White Blood Count 6.9 K/mm3 (4.5-10.0)
[2022-09-26 15:43] LABS: Appearance Urine Clear (Clear); Bilirubin Urine Negative (Negative); Blood Urine Negative (Negative); Color Urine Yellow (Yellow); Glucose Urine UA Negative (Negative); Ketones Urine Negative (Negative); Leukocyte Esterase Ur Negative LEU/UL (NEGATIVE); Nitrate Urine Negative (Negative); Protein Urine Negative (Negative); Specific Grav Ur 1.015 (1.001-1.035)
[2022-09-26 15:51] LABS: Add Urine Microscopic? NO
[2022-09-26 16:30] LABS: HIV 1/2 Ab P24 Ag Result Negative (Negative)
[2022-09-26 18:25] LABS: Vitamin D 25 Hydroxy 18.8 ng/mL
[2022-09-26 18:43] LABS: Hepatitis B Surface Antigen Negative (Negative); Rubella IgG Antibody 8.5 IU/ML
[2022-09-26 18:57] LABS: Hepatitis C Virus Antibody Negative (Negative)
[2022-09-27 15:09] LABS: Rapid Plasma Reagin Non-Reactive (NonReactive)
[2022-10-02 14:33] LABS: Hematocrit 36.6 % (35.0-45.0); Hemoglobin 11.9 g/dL (11.7-15.5); MCH 25.9 pg (27.0-33.0); MCV 79.7 fL (80.0-100.0); Red Blood Cell Count 4.59 Mill/uL (3.80-5.10)
== END 2022-09-26 14:46 | disposition home or self-care (01) ==
LOC: ANHLAB 14:46
PROVIDERS: PCP Obstetrics & Gynecology; Visit Provider Obstetrics & Gynecology
DX: Z34.90 Encounter for supervision of normal pregnancy, unspecified, unspecified trimester (principal); Z3A.00 Weeks of gestation of pregnancy not specified
CPT/HCPCS: 36415; 81003; 82306; 83021; 84443; 85025; 86592; 86703; 86762; 86787; 86803; 86850; 86900; 86901; 87086; 87340; G0432

== ENCOUNTER 2023-01-29 15:20 | Outpatient (CLI) | payer OTHER, SELFPAY ==
[2023-01-29 16:44] LABS: Basophils Percent Auto 0.2 % (0.2-1.2); Eosinophils Absolute Auto 0.1 K/mm3 (0-0.3); Eosinophils Percent Auto 1.6 % (0-4.4); Hematocrit 33.5 % (37.0-47.0); Hemoglobin 10.7 g/dL (12.0-15.0); Immature Granulocyte Absolute 0.04 K/mm3 (0.00-0.031); Immature Granulocyte Percent A 0.5 % (0-0.5); Lymphocytes Absolute Auto 1.76 K/mm3 (0.9-3.2); Lymphocytes Percent Auto 21.2 % (18.3-44.2); Mean Corpuscular HGB Conc 31.9 g/dl (32-36); Mean Corpuscular Hemoglobin 25.7 pg (26-34); Mean Corpuscular Volume 80.5 fl (80-100); Mean Platelet Volume 10.3 fl (7.4-10.4); Monocytes Absolute Auto 0.6 K/mm3 (0.1-0.6); Monocytes Percent Auto 7.2 % (2.6-8.5); Neutrophils Absolute Auto 5.8 K/mm3 (1.3-6.7); Neutrophils Percent Auto 69.3 % (45.5-73.1); Platelet Count Result 344 k/mm3 (150-375); Red Blood Count 4.16 M/mm3 (4.2-5.4); Red Cell Distribution Width 16.3 % (11.5-14.5); White Blood Count 8.3 K/mm3 (4.5-10.0)
[2023-01-29 16:57] LABS: Glucose 1 Hour PP 50gm Dose 101 mg/dL
== END 2023-01-29 15:21 | disposition home or self-care (01) ==
PROVIDERS: PCP Obstetrics & Gynecology; Visit Provider Registered Nurse
DX: Z34.90 Encounter for supervision of normal pregnancy, unspecified, unspecified trimester (principal); Z3A.00 Weeks of gestation of pregnancy not specified
CPT/HCPCS: 36415; 82947; 85025

== ENCOUNTER 2023-02-25 15:03 | Outpatient (CLI) | payer OTHER, SELFPAY ==
[2023-02-25 16:26] LABS: Basophils Percent Auto 0.1 % (0.2-1.2); Eosinophils Absolute Auto 0.1 K/mm3 (0-0.3); Eosinophils Percent Auto 0.9 % (0-4.4); Hematocrit 34.3 % (37.0-47.0); Hemoglobin 10.8 g/dL (12.0-15.0); Immature Granulocyte Absolute 0.02 K/mm3 (0.00-0.031); Immature Granulocyte Percent A 0.3 % (0-0.5); Lymphocytes Absolute Auto 1.45 K/mm3 (0.9-3.2); Lymphocytes Percent Auto 20.7 % (18.3-44.2); Mean Corpuscular HGB Conc 31.5 g/dl (32-36); Mean Corpuscular Hemoglobin 25.3 pg (26-34); Mean Corpuscular Volume 80.3 fl (80-100); Mean Platelet Volume 10.4 fl (7.4-10.4); Monocytes Absolute Auto 0.7 K/mm3 (0.1-0.6); Monocytes Percent Auto 9.3 % (2.6-8.5); Neutrophils Absolute Auto 4.8 K/mm3 (1.3-6.7); Neutrophils Percent Auto 68.7 % (45.5-73.1); Platelet Count Result 332 k/mm3 (150-375); Red Blood Count 4.27 M/mm3 (4.2-5.4); Red Cell Distribution Width 16.2 % (11.5-14.5)
[2023-02-25 17:32] LABS: HIV 1/2 Ab P24 Ag Result Negative (Negative)
[2023-02-26 14:55] LABS: Rapid Plasma Reagin Non-Reactive (NonReactive)
== END 2023-02-25 15:04 | disposition home or self-care (01) ==
LOC: ANHLAB 15:03
PROVIDERS: PCP Obstetrics & Gynecology; Visit Provider Obstetrics & Gynecology
DX: Z34.90 Encounter for supervision of normal pregnancy, unspecified, unspecified trimester (principal); Z3A.00 Weeks of gestation of pregnancy not specified
CPT/HCPCS: 36415; 85025; 86592; 86703; G0432

== ENCOUNTER 2024-06-04 11:46 | Emergency (ER) | payer OTHER, SELFPAY ==
--- NOTE | ~2024-06-04 | XR_ITS ---
EXAMINATION: XR chest 1V portable DATE: 06/04/2024 12:51 INDICATION: 3 days of cough and congestion TECHNIQUE: frontal view of the chest was obtained. COMPARISON: Chest radiograph dated 09/10/2013 FINDINGS: There is new elevation the right hemidiaphragm. No focal airspace opacities, pulmonary edema, pleural effusion or pneumothorax. The cardiomediastinal silhouette is normal. Visualized bones and soft tiss ues are unremarkable. IMPRESSION: 1. Elevation right hemidiaphragm, new since 2013. No other acute cardiopulmonary disease. Reviewed, dictated and finalized at location A. VE FIXER IMPRESSION: 1. Elevation right hemidiaphragm, new since 2013. No other acute cardiopulmonar y disease.
[2024-06-04 11:55] VITALS: BP 166/92; PULSE 110; RESP 20; TEMP 37.6; O2SAT 100
--- NOTE | 2024-06-04 12:21 | ED.URI ---
HPI - URI/Sore Throat General Chief Complaint: Upper Respiratory Infection Stated Complaint: sore throat, chills, h/a Time Seen by Provider: 06/04/24 12:08 Source: patient Mode of arrival: ambulatory Limitations: no limitations History of Present Illness HPI Narrative: Coughing up clear phlegm, sore throat, headache, body aches, lethargy, not feeling well started yesterday. 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 She denies any fever, vomiting, diarrhea. Related Data Home Medications Medication Instructions Recorded Confirmed levonorgestrel 21 mcg/24 hr (up to 1 device intrauterine ONCE 06/06/23 8 years) 52 mg intrauterine device (Mirena) Allergies Allergy/AdvReac Type Severity Reaction Status Date / Time No Known Allergies Allergy Verified 06/06/23 13:42 Review of Systems Review of Systems: All systems reviewed & are unremarkable except as noted in HPI and below PMFSH Past Medical History Medical History Encounter for IUD insertion History of herpes genitalis History of miscarriage Surgical History Surgical History Delivery by section (~03/08/23) at [facility] Family History Family History Sibling Asthma Father Heart disease Mother Hypertension Social History Social History Smoking status: Never smoker Second hand tobacco smoke exposure: No Alcohol intake: never Substance use: never Lack of Transportation: No Lack of Food: Never True Current Housing: I Have Housing Concerned About Future Housing: No Difficulty Paying Gas/Electric Bills: No Difficulty Paying for Meds: No Currently Unemployed: No Education: Master's Degree or Higher Difficulty w/ Childcare or Family Care: No Living arrangements: with family Occupation/Education: occupation Gender identity (if verbalized by the patient): Female Sexual Orientation (if Verbalized by the Patient): Straight or Heterosexual Spiritual care concerns: No (Would like computer operator to visit) Exam Narrative: General appearance: Well-developed, well-nourished Skin: Normal color Head: Normocephalic, nontraumatic Eyes: Clear conjunctiva ENT: Oropharyngeal erythema Neck: Supple, nontender Chest and respiratory: Airway patent, no respiratory distress, no accessory muscle use Heart: Regular rate/rhythm Abdomen: Soft, nontender, no organomegaly, quiet bowel sounds Neurologic: Alert and oriented ?3, LEAD JAVASCRIPT DEVELOPER is normal as tested, no gross motor deficit Course Vital Signs Vital signs: Vital Signs Temperature 37.6 C 06/04/24 11:55 Pulse Rate 110 H 06/04/24 11:55 Respiratory Rate 20 06/04/24 11:55 Blood Pressure 166/92 H 06/04/24 11:55 Pulse Oximetry 100 06/04/24 11:55 Oxygen Delivery Room Air 06/04/24 11:55 Temperature 37.6 C 06/04/24 11:55 Pulse Rate 110 H 06/04/24 11:55 Respiratory Rate 20 06/04/24 11:55 Blood Pressure 166/92 H 06/04/24 11:55 Pulse Oximetry 100 06/04/24 11:55 Oxygen Delivery Room Air 06/04/24 11:55 MDM - URI/Sore Throat MDM Narrative Medical decision making narrative: Patient presents with upper respiratory viral infection like symptoms Vital signs showing blood pressure 166/92, heart rate of 110, temperature 37.6? Physical examination showing annita pharyngeal erythema, runny nose and nasal congestion Differential diagnosis include upper respiratory viral infection and or strep throat Workup today came back positive for strep throat, patient tested negative for COVID, flu and RSV but other respiratory viral infection is high likely. Patient declined 1 dose of penicillin IM, requested Z-Brennon. The pt was discharged to home.the pt,s condition upon discharge was fair,education was provided to the pt in reference to the final impression,discharge study results,treatment,prognosis and need for follow up . Differential Diagnosis Differential diagnosis: Likely other (As above) Medical Records Attestation: I reviewed the patient's medical records. Lab Data Labs: Lab Results 06/04/24 Range/Units 12:06 Influenza A (RT-PCR) Negative (Negative) Influenza B (RT-PCR) Negative (Negative) RSV (RT-PCR) Negative (Negative) SARS-CoV-2 RNA (RT-PCR) Negative (Negative) Group A Strep (PCR) Detected A (Negative) Critical Care Time Critical Care Time Critical Care Time: No Discharge Plan Discharge Clinical Impression: Acute streptococcal pharyngitis, Upper respiratory infection, viral Patient Disposition: Home, Self-Care Condition: Stable Instructions: Antibiotic Form, Strep Throat (ED), Viral Syndrome (ED) Additional Instructions: Return if symptoms are worsening , call your family physician for appointment, take Tylenol, ibuprofen as as needed for aches and pain, continue home medications. Prescriptions: New azithromycin [Zithromax Z-Brennon] 250 mg tablet 250 mg PO DAILY 5 Days Qty: 6 0RF No Action Mirena 21 mcg/24 hours (8 yrs) 52 mg intrauterine device 1 device intrauterine ONCE Rx Instructions: inserted 04/2023 Follow-up/Referrals: Emerson Blake MD [Primary Care Provider] - Stand Alone Forms: Work/School Release IP
[2024-06-04 12:31] LABS: Strep Group A RT-PCR DETECTED (Negative)
[2024-06-04 12:47] LABS: Influenza A QL RT-PCR Negative (Negative); Influenza B QL RT-PCR Negative (Negative); RSV RNA, RT-PCR Negative (Negative); SARS-CoV-2 RNA PCR Negative (Negative)
[2024-06-04] MEDS: ACETAMINOPHEN 325 MG TABLET 650 MG PO (13:13)
[2024-06-04] MEDS: IBUPROFEN 600 MG TABLET PO (13:13)
== END 2024-06-04 13:21 | disposition home or self-care (01) ==
PROVIDERS: Emergency Medicine; Emergency Provider Emergency Medicine; PCP Obstetrics & Gynecology
DX: J02.0 Streptococcal pharyngitis (principal); Z20.822 Contact with and (suspected) exposure to COVID-19
CPT/HCPCS: 71045; 87637; 87651; 99283; A9270

== ENCOUNTER 2025-06-23 09:17 | Emergency (ER) | payer OTHER, SELFPAY ==
--- NOTE | 2025-06-23 09:28 | ED.GENADULT ---
HPI - General Adult General Chief complaint: Upper Respiratory Infection Stated complaint: Sore Throat/Bodyaches Source: patient Mode of arrival: ambulatory Limitations: no limitations History of Present Illness HPI narrative: Pt is a 35 y/o female presenting with c/o sore throat. Additional sx reported include headache, bodyaches. Sx began last night. Reports her 2 y/o was dx with GABHS and her 3 y/o was dx with bronchitis at [employer] yesterday. 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 No additional complaints. Related Data Home Medications ?Medication ?Instructions ?Recorded ?Confirmed ?Last Taken ?Type levonorgestrel (Mirena) 1 device intrauterine ONCE 06/06/23 06/23/25 Unknown History Allergies Allergy/AdvReac Type Severity Reaction Status Date / Time No Known Allergies Allergy Verified 06/23/25 09:24 Review of Systems Review of Systems: CONSTITUTIONAL: reports body aches, denies fever, chills, or sweats. EYES: Denies visual changes, redness, or discharge. ENT: Reports sore throat, denies rhinorrhea, congestion or otalgia. CARDIOVASCULAR: Denies chest pain, palpitations, or edema. RESPIRATORY: Denies cough or dyspnea. GASTROINTESTINAL: Denies abdominal pain, nausea, vomiting, or diarrhea. GENITOURINARY: Denies dysuria or hematuria. SKIN: Denies rash, itching, or wounds. MUSCULOSKELETAL: Denies back pain, joint pain, or myalgia. NEUROLOGIC: Reports headache, denies numbness, tingling, or weakness. PSYCH: Denies depression or anxiety. All systems reviewed & are unremarkable except as noted in HPI and below PMFSH Past Medical History Medical History Encounter for IUD insertion History of herpes genitalis History of miscarriage Surgical History Surgical History Delivery by section (~03/08/23) at [facility] Family History Family History Sibling Asthma Father Heart disease Mother Hypertension Social History Social History Smoking status: Never smoker Second hand tobacco smoke exposure: No Alcohol intake: never Substance use: never Lack of Transportation: No Lack of Food: Never True Current Housing: I Have Housing Concerned About Future Housing: No Difficulty Paying Gas/Electric Bills: No Difficulty Paying for Meds: No Currently Unemployed: No Education: Master's Degree or Higher Difficulty w/ Childcare or Family Care: No Living arrangements: with family Occupation/Education: occupation Gender identity (if verbalized by the patient): Female Sexual Orientation (if Verbalized by the Patient): Straight or Heterosexual Spiritual care concerns: No (Would like mba intern to visit) Exam Narrative: GENERAL: Well-appearing, well-nourished, and in no acute distress. Morbidly obese HEAD: Normocephalic, atraumatic. EYES: EOMI. No redness or drainage. Conjunctivae normal. ENT: Mucous membranes pink and moist. Nares clear. No rhinorrhea. TMs normal bilaterally. Tonsils are 3+ bilaterally with erythema, exudate. Uvula midline. Voice is normal. No trismus. NECK: Normal AROM. Supple. +anterior cervical lymphadenopathy. CHEST: No respiratory distress. Clear to auscultation. HEART: Regular rate and rhythm. No murmur appreciated. Normal peripheral pulses. EXTREMITIES: Normal range of motion. SKIN: Warm, dry, no rash. Capillary refill normal. Normal skin turgor. NEURO: No focal deficits. Alert and oriented x3. Gait steady. PSYCH: Normal affect. No signs of depression or anxiety. Course Course Emergency Course: Discussed elevated blood pressure readings with patient and advised daily BP monitoring and f/u with PCP if persisting. Level of Care: Express Care Visit Vital Signs Vital signs: Vital Signs Temperature 99.5 F 06/23/25 09:30 Pulse Rate 108 H 06/23/25 09:30 Respiratory Rate 16 06/23/25 09:30 Blood Pressure 141/73 H 06/23/25 09:30 Pulse Oximetry 100 06/23/25 09:30 Temperature 99.5 F 06/23/25 09:30 Pulse Rate 108 H 06/23/25 09:30 Respiratory Rate 16 06/23/25 09:30 Blood Pressure 141/73 H 06/23/25 09:30 Pulse Oximetry 100 06/23/25 09:30 [facility] Differential Diagnosis Differential Diagnosis: GABHS, viral pharyngitis, peritonsillar abscess, unspecified Viral URI Lab Data [facility] Lab Attestation statement: I personally reviewed the patient's lab results. Labs: Lab Results 06/23/25 06/23/25 Range/Units 09:36 09:37 POC Grp A Strep Screen Positive Positive (Negative) Discharge Plan Discharge Clinical Impression: Acute streptococcal pharyngitis, Elevated blood pressure reading in office without diagnosis of hypertension Patient Disposition: Home Condition: Stable Instructions: Antibiotic Form, Strep Throat (DC) Additional Instructions: Go straight to ER should your symptoms become worse or should any new symptoms develop Patient Language: Taiwanese Prescriptions: New penicillin V potassium 500 mg tablet 500 mg PO Q12H 10 Days Qty: 20 0RF No Action Mirena 21 mcg/24 hours (8 yrs) 52 mg intrauterine device 1 device intrauterine ONCE Rx Instructions: inserted 04/2023 Follow-up/Referrals: Emerson Blake MD [Primary Care Provider, [employer]] - 06/24/25 Stand Alone Forms: Work/School Release IP Time of Disposition: 09:37
[2025-06-23 09:30] VITALS: BP 141/73; PULSE 108; RESP 16; TEMP 37.5; O2SAT 100
[2025-06-23] MEDS: dexAMETHasone SOD PHOS INJ 10 MG/ML 1 ML VIAL IM (09:41)
[2025-06-23 10:01] LABS: EDSTREPNEGPOS1 Positive (Negative)
[2025-06-23 10:01] LABS: EDSTREPNEGPOS1 Positive (Negative)
== END 2025-06-23 09:50 | disposition home or self-care (01) ==
PROVIDERS: Emergency Provider Registered Nurse; PCP Obstetrics & Gynecology
DX: J02.0 Streptococcal pharyngitis (principal); R03.0 Elevated blood-pressure reading, without diagnosis of hypertension
CPT/HCPCS: 87880; 96372; 99213; G0463; J1100